=== PATIENT | male | born 1965 | race Caucasian/White ===

== ENCOUNTER 2018-12-07 09:05 | Emergency (ER) | payer OTHER ==
[~2018-12-07] VITALS: Ht 190.5 cm; Wt 120.2 kg
[2018-12-07] MEDS ORDERED: Norco 5-325 Ta1 EACH PO (10:14)
[2018-12-07] MEDS ORDERED: PENVK500 PO (10:15)
== END 2018-12-07 10:25 | disposition home or self-care (01) ==
LOC: ER 09:05
DX: K04.7 Periapical abscess without sinus (principal); F17.210 Nicotine dependence, cigarettes, uncomplicated
CPT/HCPCS: 41800; 99282-25; A9270-GY

== ENCOUNTER 2024-09-03 01:12 | Day surgery (SDC) | payer OTHER ==
[~2024-09-03 01:12] MED LIST: BUME2 PO; ELIQUIS5 M2 PO; JARDIANCE10 MG PO; LOSA25 PO; MAGNESIUM OXID500 MG PO; METO50ER PO; MICONAZOLE NITR85 GM TOP; Norco 5-325 Ta1 EACH PO; PENVK500 PO; SPIR25 PO
== END 2024-09-03 23:00 ==
LOC: WOUND 01:12
DX: E11.621 Type 2 diabetes mellitus with foot ulcer (principal); L97.522 Non-pressure chronic ulcer of other part of left foot with fat layer exposed; L97.312 Non-pressure chronic ulcer of right ankle with fat layer exposed; I87.2 Venous insufficiency (chronic) (peripheral); I11.0 Hypertensive heart disease with heart failure; I50.9 Heart failure, unspecified; I48.91 Unspecified atrial fibrillation; G60.9 Hereditary and idiopathic neuropathy, unspecified; Z72.0 Tobacco use; Z88.8 Allergy status to other drugs, medicaments and biological substances
CPT/HCPCS: G0463

== ENCOUNTER 2024-09-13 08:00 | Day surgery (SDC) | payer OTHER | END 2024-09-13 23:30 | disposition home or self-care (01) | LOC: WOUND | DX: E11.622 Type 2 diabetes mellitus with other skin ulcer (principal); L97.312 Non-pressure chronic ulcer of right ankle with fat layer exposed; E11.621 Type 2 diabetes mellitus with foot ulcer; L97.522 Non-pressure chronic ulcer of other part of left foot with fat layer exposed; I11.0 Hypertensive heart disease with heart failure; I50.9 Heart failure, unspecified; I87.2 Venous insufficiency (chronic) (peripheral); I48.91 Unspecified atrial fibrillation; G60.9 Hereditary and idiopathic neuropathy, unspecified; Z72.0 Tobacco use | CPT/HCPCS: A6213; G0463 ==

== ENCOUNTER 2024-09-19 04:49 | Day surgery (SDC) | payer OTHER ==
[2024-09-19] MEDS ORDERED: Lidocaine HCl 4% Cream 5 GM ONE (15:35)
== END 2024-09-19 23:39 | disposition home or self-care (01) ==
LOC: WOUND 04:49
DX: E11.622 Type 2 diabetes mellitus with other skin ulcer (principal); L97.312 Non-pressure chronic ulcer of right ankle with fat layer exposed; E11.621 Type 2 diabetes mellitus with foot ulcer; L97.522 Non-pressure chronic ulcer of other part of left foot with fat layer exposed; I87.2 Venous insufficiency (chronic) (peripheral); I11.0 Hypertensive heart disease with heart failure; I50.9 Heart failure, unspecified; I48.91 Unspecified atrial fibrillation; G60.9 Hereditary and idiopathic neuropathy, unspecified; Z72.0 Tobacco use
CPT/HCPCS: A6213; A9270

== ENCOUNTER 2024-10-23 01:40 | Day surgery (SDC) | payer OTHER | END 2024-10-23 23:00 | disposition home or self-care (01) | LOC: WOUND 01:40 | DX: E11.621 Type 2 diabetes mellitus with foot ulcer (principal); L97.522 Non-pressure chronic ulcer of other part of left foot with fat layer exposed; E11.622 Type 2 diabetes mellitus with other skin ulcer; L97.312 Non-pressure chronic ulcer of right ankle with fat layer exposed; I87.2 Venous insufficiency (chronic) (peripheral); I11.0 Hypertensive heart disease with heart failure; I50.9 Heart failure, unspecified; I48.91 Unspecified atrial fibrillation; G60.9 Hereditary and idiopathic neuropathy, unspecified; Z72.0 Tobacco use | CPT/HCPCS: G0463 ==

== ENCOUNTER 2025-03-12 15:25 | Inpatient (IN) | payer OTHER ==
[2025-03-12] VITALS (9 sets, daily range): BP systolic 80–134; BP diastolic 55–101
[~2025-03-12] VITALS: Ht 190.5 cm; Wt 141.3 kg
[~2025-03-12 15:25] MED LIST changes: +Etomidate 2MG / ML 10ML Vial XX ONE
[2025-03-12] MEDS ORDERED: NS 1,000 ML IV SCH ×2 (15:50→16:25)
[2025-03-12 16:06] LABS: Calcium, Ionized (POC) 1.39 mmol/L (1.10-1.46); Chloride (POC) 103 mmol/L (98-108); Creatinine (POC) 2.1 mg/dL (0.8-1.3); Glucose (ISTAT POC) 276 mg/dL (70-99); Hematocrit (POC) 49.0 % (41.0-53.0); Hemoglobin (POC) 16.7 g/dL (13.5-17.5); Potassium (POC) 5.4 mmol/L (3.5-5.5); Sodium (POC) 133 mmol/L (135-148); Total CO2 (POC) 20 mmol/L (21-32)
[2025-03-12 16:09] LABS: BASOPHILS ABSOLUTE AUTO 0.12 K/mm3 (0.00-0.23); BASOPHILS PERCENT AUTO 1 % (0-2); EOSINOPHILS ABSOLUTE AUTO 0.32 K/mm3 (0.00-0.68); EOSINOPHILS PERCENT AUTO 2 % (0-6); Hematocrit 46.3 % (37.0-53.0); Hemoglobin 15.1 g/dL (13.5-17.5); IMMATURE GRAN ABSOLUTE AUTO 0.20 K/mm3 (0.00-0.10); IMMATURE GRAN PERCENT AUTO 1 % (0-1); LYMPHOCYTES ABSOLUTE AUTO 3.10 K/mm3 (0.84-5.20); LYMPHOCYTES PERCENT AUTO 20 % (21-46); MONOCYTES ABSOLUTE AUTO 1.36 K/mm3 (0.16-1.47); MONOCYTES PERCENT AUTO 9 % (4-13); Mean Corpuscular HGB Conc 32.6 g/dL (31.5-36.5); Mean Corpuscular Volume 95 fL (80-100); NEUTROPHILS ABSOLUTE AUTO 10.29 K/mm3 (1.96-9.15); NEUTROPHILS PERCENT AUTO 67 % (41-73); NRBC ABSOLUTE 0.00 K/mm3 (0.00-0.02); NRBC Auto 0.0 /100 WBC (0.0-0.2); Platelet Count 235 K/mm3 (150-400); RDW Coefficient Variation 13.8 % (11.7-14.2); RDW Standard Deviation 47.9 fL (35.1-46.3)
[2025-03-12] MEDS ORDERED: NS 1,000 ML IV ONE ×2 (16:25→19:06)
[2025-03-12 16:32] LABS: Alanine Aminotransfer (ALT/SGP 21.0 U/L (12-78); Albumin, Blood 3.2 g/dL (3.4-5.0); Albumin/Globulin Ratio 0.7 (0.8-1.8); Anion Gap 11.0 mmol/L (3-11); Aspartate Aminotrans (AST/SGOT 17.0 U/L (12-37); Bilirubin, Total 0.3 mg/dL (0.1-1.0); Blood Urea Nitrogen 41.0 mg/dL (8-24); CO2, Blood 21.0 mmol/L (21-32); Calcium, Blood 10.1 mg/dL (8.5-10.1); Chloride, Blood 103.0 mmol/L (98-108); Creatinine, Blood 2.65 mg/dL (0.60-1.20); Globulin, Blood 4.5 g/dL (2.2-4.0); Glucose, Blood 286.0 mg/dL (70-99); Potassium, Blood 5.3 mmol/L (3.5-5.5); Sodium, Blood 130.0 mmol/L (136-145); Total Protein, Blood 7.7 g/dL (6.4-8.2)
[2025-03-12 16:47] LABS: Magnesium, Blood 2.1 mg/dL (1.6-2.4); Thyroid Stimulating Hormone 2.57 uIU/mL (0.360-4.800)
[2025-03-12 17:21] LABS: Source, Urine Clean Catch
[2025-03-12 17:27] LABS: Bilirubin, Urine Neg (Neg); Glucose Qualitative, Urine 2+ (Neg); Ketones, Urine Neg (Neg); Leukocyte Esterase, Urine Neg (Neg); Protein, Urine Neg (Neg); Specific Gravity, Urine 1.020 (1.003-1.022); Urobilinogen, Urine NORM (Normal)
[2025-03-12 17:40] LABS: pH Blood Venous 7.24 (7.34-7.37)
[2025-03-12] MEDS ORDERED: BUME1 PO (17:46)
[2025-03-12] MEDS ORDERED: ENTRESTO 24 MG1 EAC3 PO (17:46)
[2025-03-12 17:54] LABS: Color, Urine Pale Yellow (P-Yellow)
[2025-03-12 17:59] LABS: Prothrombin Time Results 11.9 Sec (9.7-11.5)
[2025-03-12] MEDS ORDERED: ALTEPLASE 1 MG/ML IV SCH (18:00)
[2025-03-12] MEDS ORDERED: Dose Adjust by Pharmacy XX STA (18:11)
[2025-03-12] MEDS ORDERED: Heparin Sodium,Porcine/0.5 NS 500 ML IV SCH (18:15)
[2025-03-12] MEDS ORDERED: Heparin Sodium 5000 Units/ML 1ML MDV IV ONE (18:15)
[2025-03-12] MEDS ORDERED: Ondansetron HCl 2 MG / ML 2ML Vial IV PRN (18:40)
[2025-03-12] MEDS ORDERED: NS 250 ML IV ONE (19:06)
[2025-03-12] MEDS ORDERED: Heparin Sodium 1000 Units/ML 10ML MDV ONE (19:06)
[2025-03-12] MEDS ORDERED: NS 500 ML IV ONE ×2 (19:21→19:46)
[2025-03-12] MEDS ORDERED: FentaNYL Citrate 50 MCG/ML 2 ML Injection ONE (20:13)
[2025-03-12 20:57] LABS: U Amphetamine Screen DETECTED; U Barbiturate Screen Not Detected; U Benzodiazapine Screen Not Detected; U Buprenorphine Screen Not Detected; U Cannabinoids Screen Not Detected; U Cocaine Screen Not Detected; U Methadone Screen Not Detected; U Methamphetamine Screen DETECTED; U Opiates Screen Not Detected; U Oxycodone Screen Not Detected; U Phencyclidine Screen Not Detected
[2025-03-13] VITALS (52 sets, daily range): BP systolic 88–169; BP diastolic 41–127
[2025-03-13 01:27] LABS: BASOPHILS ABSOLUTE AUTO 0.12 K/mm3 (0.00-0.23); BASOPHILS PERCENT AUTO 1 % (0-2); EOSINOPHILS ABSOLUTE AUTO 0.42 K/mm3 (0.00-0.68); EOSINOPHILS PERCENT AUTO 2 % (0-6); Hematocrit 45.8 % (37.0-53.0); Hemoglobin 14.7 g/dL (13.5-17.5); IMMATURE GRAN ABSOLUTE AUTO 0.20 K/mm3 (0.00-0.10); IMMATURE GRAN PERCENT AUTO 1 % (0-1); LYMPHOCYTES ABSOLUTE AUTO 4.72 K/mm3 (0.84-5.20); LYMPHOCYTES PERCENT AUTO 27 % (21-46); MONOCYTES ABSOLUTE AUTO 1.61 K/mm3 (0.16-1.47); MONOCYTES PERCENT AUTO 9 % (4-13); Mean Corpuscular HGB Conc 32.1 g/dL (31.5-36.5); Mean Corpuscular Volume 95 fL (80-100); NEUTROPHILS ABSOLUTE AUTO 10.57 K/mm3 (1.96-9.15); NEUTROPHILS PERCENT AUTO 60 % (41-73); NRBC ABSOLUTE 0.00 K/mm3 (0.00-0.02); NRBC Auto 0.0 /100 WBC (0.0-0.2); Platelet Count 195 K/mm3 (150-400); RDW Coefficient Variation 13.8 % (11.7-14.2); RDW Standard Deviation 48.7 fL (35.1-46.3)
[2025-03-13 01:47] LABS: Alanine Aminotransfer (ALT/SGP 21.0 U/L (12-78); Albumin, Blood 2.7 g/dL (3.4-5.0); Albumin/Globulin Ratio 0.6 (0.8-1.8); Anion Gap 10.0 mmol/L (3-11); Aspartate Aminotrans (AST/SGOT 17.0 U/L (12-37); Bilirubin, Total 0.4 mg/dL (0.1-1.0); Blood Urea Nitrogen 41.0 mg/dL (8-24); CO2, Blood 21.0 mmol/L (21-32); Calcium, Blood 9.3 mg/dL (8.5-10.1); Chloride, Blood 107.0 mmol/L (98-108); Creatinine, Blood 2.53 mg/dL (0.60-1.20); Globulin, Blood 4.4 g/dL (2.2-4.0); Glucose, Blood 202.0 mg/dL (70-99); Magnesium, Blood 2.1 mg/dL (1.6-2.4); Potassium, Blood 5.4 mmol/L (3.5-5.5); Sodium, Blood 133.0 mmol/L (136-145); Total Protein, Blood 7.1 g/dL (6.4-8.2)
[2025-03-13] MEDS ORDERED: Dose Adjust by Pharmacy XX STA ×2 (01:56→20:44)
[2025-03-13] MEDS ORDERED: Amiodarone HCl 450 MG in NS 250 ML IV SCH (04:10)
[2025-03-13] MEDS ORDERED: Amiodarone HCl 150 MG in NS 100 ML IV ONE ×3 (04:10→16:45)
--- NOTE | 2025-03-13 06:01 | NUR ---
END OF WAITER/WAITRESS THIRD CLASS SUMMARY: ADMITTED PATIENT THIS SHIFT POSTOP PULMONARY EMBOLECTOMY. POSTOP REPORTS NO PAIN OR DISCOMFORT. ALERT AND ORIENT X4. ROOM AIR. REMAINS TACHYCARDIC WITH HR 130S TO HIGH 150S. DR. SHAH MADE AWARE AND AMIO BOLUS WELL AMIO DRIP STARTED. CONTINUES HR MID 130S AT THIS TIME. CONTINUES TO REPORT NO PAIN OR DISCOMFORT. AND NON S/S OF DISTRESS. ROOM AIR. PER CAROL ANN ESCORT CAR DRIVER OK FOR REGULAR DIET POSTOP. PATIENT TOLERATING DIET WITH NO REPORTS OF NAUSEA AND NON EVIDENCE OF VOMITING. ADMIT WOUND PICTURES PLACED IN CHART AND WOUND CARE PROVIDED TO LEFT BIG TOE. LEFT GROIN SURGICAL SITE INTACT WITH SCANT AMOUNT OF DRAINAGE ON DRESSING. PATIENT BELONGINGS SENT HOME BY PATIENT VIA PATIENT MOM (MIGDALIA FERGUSON). CONTINUES ON HEPARIN GTT ON 18 U/KG/HR WITH APTT RECHECK SCHEDULED FOR 0700. LEVO ON UPON INITIAL TRANSFER BUT QUICKLY TITRATED OFF AT 2200 ON 03/12/25. EDUCATED ON CURRENT PLAN OF CARE. PATIENT MOOD LABILE WITH FREQUENT REQUETS TO REMOVE LEFT GROIN SURGICAL DEVICE. PATIENT VERBALIZING AT THIS TIME AGREEMENT TO CURRENT PLAN OF CARE. SAFETY AND COMFORT MAINTAINED.
[2025-03-13] MEDS ORDERED: Insulin Regular 100 UNIT/ML 10ML Vial SC SCH (11:30)
--- NOTE | 2025-03-13 17:55 | NUR ---
Summary. Pt rested in bed most of shift. Alert and oriented. Up to bedside commode and to sit at side of bed. Cardiology consulted for uncontrolled Aflutter, orders obtained for continuous amiodarone, see nurse notify. Pt NPO after midnight for possible LA NENA and cardioversion if arrythmia persists. R/groin site intact, no bleeding swelling or hematoma noted. All vital signs except HR in normal limits. See chart for further details.
[2025-03-14] VITALS (45 sets, daily range): BP systolic 62–178; BP diastolic 36–146
[2025-03-14 03:34] LABS: BASOPHILS ABSOLUTE AUTO 0.12 K/mm3 (0.00-0.23); BASOPHILS PERCENT AUTO 1 % (0-2); EOSINOPHILS ABSOLUTE AUTO 0.49 K/mm3 (0.00-0.68); EOSINOPHILS PERCENT AUTO 4 % (0-6); Hematocrit 39.6 % (37.0-53.0); Hemoglobin 12.8 g/dL (13.5-17.5); IMMATURE GRAN ABSOLUTE AUTO 0.18 K/mm3 (0.00-0.10); IMMATURE GRAN PERCENT AUTO 1 % (0-1); LYMPHOCYTES ABSOLUTE AUTO 4.34 K/mm3 (0.84-5.20); LYMPHOCYTES PERCENT AUTO 31 % (21-46); MONOCYTES ABSOLUTE AUTO 1.22 K/mm3 (0.16-1.47); MONOCYTES PERCENT AUTO 9 % (4-13); Mean Corpuscular HGB Conc 32.3 g/dL (31.5-36.5); Mean Corpuscular Volume 93 fL (80-100); NEUTROPHILS ABSOLUTE AUTO 7.56 K/mm3 (1.96-9.15); NEUTROPHILS PERCENT AUTO 54 % (41-73); NRBC ABSOLUTE 0.00 K/mm3 (0.00-0.02); NRBC Auto 0.0 /100 WBC (0.0-0.2); Platelet Count 218 K/mm3 (150-400); RDW Coefficient Variation 13.8 % (11.7-14.2); RDW Standard Deviation 46.9 fL (35.1-46.3)
[2025-03-14 03:55] LABS: Alanine Aminotransfer (ALT/SGP 17.0 U/L (12-78); Albumin, Blood 2.6 g/dL (3.4-5.0); Albumin/Globulin Ratio 0.7 (0.8-1.8); Anion Gap 11.0 mmol/L (3-11); Aspartate Aminotrans (AST/SGOT 15.0 U/L (12-37); Bilirubin, Total 0.3 mg/dL (0.1-1.0); Blood Urea Nitrogen 41.0 mg/dL (8-24); CO2, Blood 21.0 mmol/L (21-32); Calcium, Blood 8.6 mg/dL (8.5-10.1); Chloride, Blood 110.0 mmol/L (98-108); Creatinine, Blood 2.39 mg/dL (0.60-1.20); Globulin, Blood 3.9 g/dL (2.2-4.0); Glucose, Blood 133.0 mg/dL (70-99); Magnesium, Blood 2.0 mg/dL (1.6-2.4); Potassium, Blood 4.5 mmol/L (3.5-5.5); Sodium, Blood 137.0 mmol/L (136-145); Total Protein, Blood 6.5 g/dL (6.4-8.2)
[2025-03-14] MEDS ORDERED: Clarify Drug Order XX ONE (04:55)
[2025-03-14] MEDS ORDERED: Amiodarone HCl 150 MG in NS 100 ML IV ONE (09:40)
[2025-03-14] MEDS ORDERED: Dose Adjust by Pharmacy XX STA (10:58)
--- NOTE | 2025-03-14 11:52 | NUR ---
UPDATE: PT REPORTS N/D WITHOUT VOMITING, PER RHYTHM STRIP QT IS PROLONGED, ZOFRAN NOT GIVEN, MIKAEL NOTIFIED, NEW MED REQUESTED, AWAITING NEW ORDERS.
[2025-03-14] MEDS ORDERED: Benzocaine Oral Spray 0.5ML UD ONE (12:29)
--- NOTE | 2025-03-14 13:23 | NUR ---
UPDATE: LA NENA AT APPROX 1305, MD STARR, WET PAN MIXER, ANESTHESIOLOGIST CANDIDO, MACHINE PACKAGING TECHNICIAN ANDRIY, RN'S SHERIE ROBINS, AND BILLY AT BEDSIDE. DURING LA NENA PLACED ON O2 AND ORAL AIRWAY BY ANESTHESIOLOGIST CANDIDO. PT CARDIOVERTED AT APPROX 1310, NSR W/PCV'S, RIGHT BBB, HR 80'S. PT WOKE UP AT APPROX 1334, RETURNED TO ROOM AIR, DENIES: SOB, CHEST PAIN OR PRESSURE, N/V. 12 LEAD EKG PERFORMED AT BEDSIDE POST CARDIOVERSION.
--- NOTE | 2025-03-14 15:05 | NUR ---
UPDATE: PT SINUS HARRIET, HRR 40'S-50'S WHILE SLEEPING, MD STARR NOTIFIED, NEW ORDERS RECEIVED.
--- NOTE | 2025-03-14 16:04 | NUR ---
UPDATE: EPISODE OF INCREASED AGITATION, PT WENT FROM LYING TO QUICKLY ATTEMPTING TO STAND MOVING IN THE DIRECTION OF THIS RN WHILE REMOVING BP CUFF, O2 MONITOR, AND STATING, "I WANT OUT OF HERE, I DON'T LIKE HOSPITALS, IT'S TIME TO GO!" THIS RN STATED, "WHEN YOU MOVED QUICKLY IN MY DIRECTION YOU SCARED ME, YOU ARE A BIG STEFFANIE AND I COULD SEE THAT YOU WERE VERY UPSET, I WASN'T SURE WHAT YOU WERE TRYING TO DO BUT I WANT YOU TO KNOW THAT I AM ON YOUR TEAM AND WILL DO WHATEVER I CAN TO HELP KEEP YOU SAFE AND COMFORTABLE." PT RESPONDED, "I'M SORRY, I JUST WANT OUT OF HERE BUT I AM NOT GOING TO HURT ANYBODY ESPECIALLY YOU." PT REQUESTED STARRY SODA, EDUCATED ON DIABETIC DIET, PT VERBALIZED UNDERSTANDING, SODA GIVEN. PT REPORTS RECENT LOSS OF FATHER AND UNEXPECTED LOSS OF SISTER WITHIN PAST SIX MONTHS. MIKAEL NOTIFIED, NEW ORDER RECEIVED, MEDICATED FOR ANXIETY PER NEW ORDERS.
--- NOTE | 2025-03-14 16:44 | NUR ---
SHIFT SUMMARY: PCU WITH TELE A/O X4, COOPERATIVE WITH CARE, EASILY AGITATED AND REACTIVE, SEE PREVIOUS NOTE, MEDICATED FOR ANXIETY PER ORDERS. CARDIOVERTED AT APPROX 1300, SEE PREVIOUS NOTE, PRE CARDIOVERSION: AFLUTTER TO SIN TACH, W/PAC'S, PVC'S, AND BBB, HR 130'S, POST CARDIOVERSION: NSR TO SIN HARRIET W/PVC'S, PAC'S, AND BBB, HR 60'S-80'S POST CARDIOVERSION WITH EPISODE OF HR IN 40'S WHILE SLEEPING, SEE PREVIOUS NOTE, HEPARIN GTT RUNNING PER ORDER, AMIODERONE GTT DC'D, PO AMIODERONE STARTED PER ORDER, PT DENIES CHEST PAIN OR PRESSURE. SPO2 >92% ON RA, SPEAKING IN COMPLETE SENTENCES, DENIES SOB. EPISODE OF NAUSEA WITHOUT VOMITTING AND DIARRHEA, SEE PREVIOUS NOTE, USING URINAL AT BEDSIDE. BEDBATH GIVEN, PT DENLINED ORAL CARE ALL DAY. ORIENTED TO CALL DON'T FALL AND CALL LIGHT, PT EXPRESSES NO FURTHER NEEDS AT THIS TIME.
--- NOTE | 2025-03-14 21:05 | NUR ---
Wanting to leave AMA at first assessment pt was wanting to leave AMA, was educated on importance of monitoring after cardioversion, pt agreed to try PO ativan for sleeping
[2025-03-15 02:34] LABS: Anion Gap 7.0 mmol/L (3-11); Blood Urea Nitrogen 36.0 mg/dL (8-24); CO2, Blood 25.0 mmol/L (21-32); Calcium, Blood 8.8 mg/dL (8.5-10.1); Chloride, Blood 109.0 mmol/L (98-108); Creatinine, Blood 2.27 mg/dL (0.60-1.20); Glucose, Blood 134.0 mg/dL (70-99); Potassium, Blood 4.5 mmol/L (3.5-5.5); Sodium, Blood 136.0 mmol/L (136-145)
[2025-03-15 02:36] LABS: BASOPHILS ABSOLUTE AUTO 0.10 K/mm3 (0.00-0.23); BASOPHILS PERCENT AUTO 1 % (0-2); EOSINOPHILS ABSOLUTE AUTO 0.40 K/mm3 (0.00-0.68); EOSINOPHILS PERCENT AUTO 4 % (0-6); Hematocrit 40.0 % (37.0-53.0); Hemoglobin 13.2 g/dL (13.5-17.5); IMMATURE GRAN ABSOLUTE AUTO 0.15 K/mm3 (0.00-0.10); IMMATURE GRAN PERCENT AUTO 1 % (0-1); LYMPHOCYTES ABSOLUTE AUTO 2.50 K/mm3 (0.84-5.20); LYMPHOCYTES PERCENT AUTO 23 % (21-46); MONOCYTES ABSOLUTE AUTO 1.01 K/mm3 (0.16-1.47); MONOCYTES PERCENT AUTO 9 % (4-13); Mean Corpuscular HGB Conc 33.0 g/dL (31.5-36.5); Mean Corpuscular Volume 95 fL (80-100); NEUTROPHILS ABSOLUTE AUTO 6.90 K/mm3 (1.96-9.15); NEUTROPHILS PERCENT AUTO 62 % (41-73); NRBC ABSOLUTE 0.00 K/mm3 (0.00-0.02); NRBC Auto 0.0 /100 WBC (0.0-0.2); Platelet Count 230 K/mm3 (150-400); RDW Coefficient Variation 13.6 % (11.7-14.2); RDW Standard Deviation 47.3 fL (35.1-46.3)
[2025-03-15 03:47] VITALS: BP 158/95
--- NOTE | 2025-03-15 04:51 | NUR ---
SHIFT SUMMARY slept intermittently, SBP in 150s. HR 80-110s, ST. Frequent PVCs. Denied SOB. fine crackles in R lung. anxious to leave the hospital
[2025-03-15 08:10] VITALS: BP 138/113
--- NOTE | 2025-03-15 09:19 | NUR ---
AM NOTE: THIS RN ASSUMED CARE OF PT AT APPROX 0700, BEDSIDE REPORT FROM MUSHTAQ WILKERSON. PT A/OX4, IRRITABLE BUT COOPERATIVE W/ CARE. ABLE TO MAKE NEEDS KNOWN. HR 90-110'S, SINUS RHYTHM/SINUS TACH W/ BBB & PVC'S ON MONITOR. SBP 130'S, MAP >65. DENIES CHEST PAIN/PRESSURE/PALPITATIONS. SPO2 >90% ON RA, RESPIRATIONS EVEN & UNLABORED. AFEBRILE. ABLE TO VOID INDEPENDENTLY IN URINAL. TOLERATING PO INTAKE WELL, DENIES N/V. REPOSITIONING INDEPENDENTLY IN BED. REPORTS FEELING ANXIOUS THIS AM, MEDICATED W/ PO ATIVAN PER EMAR. PT RESTING IN BED AT THIS TIME, REPORTS FEELING HOPEFUL FOR DISCHARGE TODAY.
[2025-03-15 11:15] VITALS: BP 145/88
[2025-03-15 15:22] VITALS: BP 144/105
--- NOTE | 2025-03-15 15:29 | NUR ---
TRANSFER NOTE: NO ACUTE EVENTS THIS SHIFT. VSS. SINUS RHYTHM W/ PVC'S ON MONITOR. PT SLEEPING FOR MAJORITY OF SHIFT. TRANSFERRED TO PCU-15 VIA WHEELCHAIR. ALL BELONGINGS TRANSFERRED W/ PT. REPORT TO BILLY WILKERSON TO ASSUME CARE.
--- NOTE | 2025-03-15 15:36 | NUR ---
arrival to pcu patient arrived to pcu via wheelchair and transfered into the bed with a standy. patient vital signs stable. patient is alert and oriented x4. perrla. patient is able to make needs known and uses call light appropriately. patient denies pain, chest pain/pressure or shortness of breath. see shift assessment for further detials.
--- NOTE | 2025-03-15 16:34 | NUR ---
mr manohar Barreto in to see patient and discussed kidney improvement and importance of taking eliquis.
--- NOTE | 2025-03-15 17:05 | NUR ---
shift summary see previous notes. vital signs stable. no acute changes
[2025-03-15 19:57] VITALS: BP 153/113
--- NOTE | 2025-03-16 00:50 | NUR ---
DEPARTURE AGAINST MEDICAL ADVICE AT APPROX 0020 pt reported anxiety and requested medication. Told the pt that his medication was ordered q6 and it had only been 3 hours. He said "then I am getting out of here." Asked pt to give me a few seconds to call MD, he agreed. Discussed with MD, MD changed frequency, allowing the pt to receive said medication now. Notified the pt of this change, called pharmacy to expedite verification while in the room with the pt. Told pt I would return with medication. While in the pyxus room, another nurse notified me that the patient had put on a coat and was exiting through the cates. I approached the pt and educated him about the benefits of continuing medical care and the risks of leaving against medical advice. The patient returned to his room so that staff could remove his IV and telemetry box. He refused to sign AMA paperwork, but left peacefully with security guard supervisor and all of his belongings.
== END 2025-03-16 00:31 | disposition left against medical advice (07) | DRG 163 ==
LOC: ER 15:25 → ICUE 18:35 → PCU 03-15 15:19
PROVIDERS: Emergency Medicine; Family Medicine; Nurse Practitioner Acute Care; Student in an Organized Health Care Education/Training Program; ADMIT Student in an Organized Health Care Education/Training Program
PROC: X2CY3T7 Extirpation of Matter from Great Vessel using Computer-aided Mechanical Aspiration, Percutaneous Approach, New Technology Group 7 (ICD-10-PCS; principal; 2025-03-12)
PROC: B31T1ZZ Fluoroscopy of Left Pulmonary Artery using Low Osmolar Contrast (ICD-10-PCS; 2025-03-12)
PROC: B31S1ZZ Fluoroscopy of Right Pulmonary Artery using Low Osmolar Contrast (ICD-10-PCS; 2025-03-12)
PROC: 4A133B3 Monitoring of Arterial Pressure, Pulmonary, Percutaneous Approach (ICD-10-PCS; 2025-03-12)
PROC: 5A2204Z Restoration of Cardiac Rhythm, Single (ICD-10-PCS; 2025-03-14)
DX: I26.99 Other pulmonary embolism without acute cor pulmonale (principal); I50.23 Acute on chronic systolic (congestive) heart failure; J96.02 Acute respiratory failure with hypercapnia; I48.92 Unspecified atrial flutter; N17.9 Acute kidney failure, unspecified; E87.1 Hypo-osmolality and hyponatremia; E87.20 Acidosis, unspecified; R57.9 Shock, unspecified; I42.8 Other cardiomyopathies; L97.929 Non-pressure chronic ulcer of unspecified part of left lower leg with unspecified severity; L97.919 Non-pressure chronic ulcer of unspecified part of right lower leg with unspecified severity; Z68.41 Body mass index [BMI] 40.0-44.9, adult; I27.20 Pulmonary hypertension, unspecified; F15.10 Other stimulant abuse, uncomplicated; I50.82 Biventricular heart failure; G40.909 Epilepsy, unspecified, not intractable, without status epilepticus; D72.829 Elevated white blood cell count, unspecified; E11.65 Type 2 diabetes mellitus with hyperglycemia; E11.22 Type 2 diabetes mellitus with diabetic chronic kidney disease; D63.1 Anemia in chronic kidney disease; N18.31 Chronic kidney disease, stage 3a; J44.9 Chronic obstructive pulmonary disease, unspecified; T45.516A Underdosing of anticoagulants, initial encounter; I48.0 Paroxysmal atrial fibrillation; E66.01 Morbid (severe) obesity due to excess calories; I45.10 Unspecified right bundle-branch block; I87.2 Venous insufficiency (chronic) (peripheral); I27.82 Chronic pulmonary embolism; F41.9 Anxiety disorder, unspecified; E87.5 Hyperkalemia; R00.1 Bradycardia, unspecified; Z53.29 Procedure and treatment not carried out because of patient's decision for other reasons; Z79.01 Long term (current) use of anticoagulants; Z79.84 Long term (current) use of oral hypoglycemic drugs; Z91.138 Patient's unintentional underdosing of medication regimen for other reason; Z88.8 Allergy status to other drugs, medicaments and biological substances; Z86.73 Personal history of transient ischemic attack (TIA), and cerebral infarction without residual deficits
CPT/HCPCS: 36415; 70450; 71260; 72125; 76937; 80047; 80048; 80053; 81003; 82803; 82947; 83605; 83690; 83735; 83880; 84439; 84443; 84484; 85014; 85025; 85520; 85610; 85730; 87040; 93005; 93010; 93312; 93325; 93970; 96361; 96374; 99152; 99153; 99285-25; A9270; C1725; C1757; C1769; C1894; C8929; J0282; J1644; J1815; J2704; J2997; J3010; J7030; J7040; J7050; J7120; Q9957; Q9967